=== PATIENT | male | born 1995 | race Caucasian/White ===

== ENCOUNTER 2024-01-08 06:43 | Emergency (ER) | payer BC, SELFPAY ==
[2024-01-08 07:02] VITALS: BP 122/76
[2024-01-08 07:48] LABS: % Basophils 1.1 % (0-2); % Eosinophils 1.8 % (0-6); % Immature Granulocytes 0.3 % (0-0.5); % Lymphocytes 30.1 % (20.5-51.1); % Monocytes 7.7 % (1.7-9.3); Absolute Basophils 0.1 10^3/uL (0-0.2); Absolute Eosinophils 0.2 10^3/uL (0-0.7); Absolute Lymphocytes 2.9 10^3/uL (1.2-3.4); Absolute Monocytes 0.7 10^3/uL (0.1-0.6); Absolute Neutrophils 5.6 10^3/uL (1.4-6.5); Hematocrit 45.1 % (39.0-52.0); Hemoglobin 16.5 g/dL (13.0-18.0); Mean Corp Hgb Conc. 36.6 g/dL (33.0-37.0); Mean Corpuscular Hgb 30.6 pg (27.0-31.0); Mean Corpuscular Volume 83.5 fL (80.0-94.0); Nucleated Red Blood Cells % 0 % (-); Platelet Count 242 10^3/uL (130-400); Red Cell Dist. Width 12.8 % (11.5-14.5); White Blood Cell Count 9.5 10^3/uL (4.8-10.8)
[2024-01-08 08:00] VITALS: BP 106/71
[2024-01-08 08:04] LABS: ALT (SGPT) 27 U/L (0-50); AST (SGOT) 24 U/L (17-59); Albumin 4.7 g/dl (3.5-5.0); Alkaline Phosphatase 64 U/L (38-126); Blood Urea Nitrogen 18 mg/dl (9-20); Carbon Dioxide 30 mmol/L (22-30); Chloride 101 mmol/L (98-107); Glucose 85 mg/dl (70-99); Potassium 3.9 mmol/L (3.5-5.1); Sodium 140 mmol/L (135-145); Total Bilirubin 0.6 mg/dl (0.2-1.3); Total Protein 6.9 g/dl (6.3-8.2); eGFR > 60.00
--- NOTE | 2024-01-08 08:16 | ED.GENMED ---
History of Present Illness
General
Chief Complaint: Urinary Symptoms
Time Seen by Provider: 01/08/24 08:07
History of Present Illness
History of Present Illness:
Patient is a 28-year-old man with history of ADHD and anxiety presenting to the emergency department with hematuria. Patient states that last night he had a little bit of blood in his urine. This morning went to the bathroom and had gross blood
that was red. No clots. He has been having constant suprapubic pain. It does not radiate. Has been having some dysuria and nausea. No fevers or chills. No back pain. No blood per stool. He is not on a blood thinner. This is never happened
to him before. He does not smoke. No history of cancer personally or family. No history of kidney stone. He is not sexually active. No testicular swelling. No penile discharge.
Past History
Past History
ED Past Medical History: Psychiatric (Generalized anxiety disorder)
ED Past Surgical History: None
Social History
Tobacco: Non-smoker
Personal: Single
Phy Exam
Physical Exam
Physical Exam:
GENERAL: Slightly uncomfortable appearing
HEENT: normocephalic, extraocular movements intact, moist oral mucosa
NECK: normal inspection
RESPIRATORY: no respiratory distress, clear to auscultation bilaterally
CARDIOVASCULAR: regular rate and rhythm
ABDOMEN/: soft, non-distended, suprapubic tenderness to palpation, no rebound or guarding
EXTREMITIES: non-tender, no edema/swelling
NEUROLOGIC: awake and alert, moves all extremities
SKIN: warm
Course
Orders/Labs/Results
Orders:
Orders
01/08/24 07:14
Complete Blood Count/With Diff Urgent
Comprehensive Metabolic Panel Urgent
01/08/24 08:15
CT Abd/pelvis W Iv Cont Urgent
Comment:
Reason For Exam: gross hematuria, pelvic pain
Acetaminophen [Tylenol] 1,000 mg PO NOW STA
01/08/24 10:31
Urinalysis Reflex To Culture Urgent
Date Specimen was Collected: 01/08/24
Time Specimen was Collected: 07:05
Urine Microscopic Reflex Cult Urgent
Abnormal Lab Results
01/08/24 01/08/24
07:14 10:31
Absolute Monos (auto) 0.7 H 10^3/uL
(0.1-0.6)
Ur Occult Blood Reflex 4+ A
(Negative)
Urine Bilirubin 1+ A
(Negative)
Leukocyte Esterase Rfl Trace A
(Negative)
Urine RBC 60-70 A /HPF
(0-2)
Urine Bacteria (Reflex) Few A
(Negative)
Urine Albumin (Reflex) 3+ A
(Neg - Trace)
01/08/24 07:14
01/08/24 07:14
Vital Signs
Initial and Last Documented VS:
Initial Vital Signs
Temp Pulse Resp BP Pulse Ox
98.2 F 64 18 122/76 99
01/08/24 07:02 01/08/24 07:02 01/08/24 07:02 01/08/24 07:02 01/08/24 07:02
Last Documented Vital Signs
Temp Pulse Resp BP Pulse Ox
98.0 F 64 16 118/78 99
01/08/24 08:00 01/08/24 10:42 01/08/24 10:42 01/08/24 10:42 01/08/24 10:42
MDM/Problems Addressed
Differential Diagnosis Includes:
28-year-old man presenting to the emergency department with 1 day of pelvic pain and gross hematuria. Vitals unremarkable and exam does show man who is slightly uncomfortable appearing with suprapubic abdominal tenderness. Differential is broad
but consists of UTI versus kidney stone versus bladder mass. Less likely to be prostate etiology as he has never had issues before. History and exam not consistent with glomerular disease. Blood work obtained prior to evaluation shows a normal
white count and normal creatinine. Will obtain CT scan. Urine pending at this time. Will BladderScan as patient states he is having difficulty.
*Critical Care Note
Total Time (30-74mins, 75-104mins- exclusive of procedures): Not Applicable
Update Note
Update Note:
Bladder scan 150. Patient was able to urinate. Urine with some blood. No overt signs of infection though he does have squamous cells. CT scan does show bladder stone and liver lesion which patient was updated with. He will follow-up with
urology. We did discuss indications for Banda catheter placement. He did urinate and bladder scan after that was 130. Given that he still has the urge and is able to urinate after shared decision making we will hold off on Banda catheter. I did
give patient strict return precautions. Will DC at this time
ED Attending Note
-
Portions of this chart may have been created with voice recognition software.� Occasional wrong word or��sound alike� substitutions may have occurred due to the inherent limitations of voice recognition software.
Discharge Plan
Departure
Patient Disposition: Home (Routine Discharge)
Date of Disposition: 01/08/24
Time of Disposition: 11:38
Patient with high blood pressure during this ER visit?: No
Discharge Problem:
Bladder calculi
Prescriptions:
No Action
.Anxiety Medication
1 tab PO PRN PRN (Reason: anxiety)
dicyclomine 10 MG capsule
10 mg PO QIDPRN PRN (Reason: abdominal pain) Qty: 15 0RF
ondansetron 4 MG tablet,disintegrating
4 mg PO TIDPRN PRN (Reason: NAUSEA) Qty: 10 0RF
Referrals:
Elias Putnam I., [Family Provider] -
Kendall Neal MD [Active] -
Activity Restrictions/Additional Instructions:
You were seen in the Emergency Department today for pelvic pain. While you were here we performed blood work, which was reassuring. Your urine did show blood but no overt signs of infection. Please follow-up with urology. Please come back to the
emergency department if you notice you have not urinated in 6 to 8 hours, have worsening pelvic discomfort or new fevers chills or urinary tract symptoms.
We would like for you to follow up with your primary care physician for further evaluation. If you experience fever, worsening of your symptoms, or develop any other new or concerning symptoms, please return to the Emergency Department immediately.
Please see the attached sheet for additional information.
When a patient comes into the Emergency Department, many diagnostic studies such as x-rays & CT Scans are completed to identify injuries. During these diagnostic studies, there are sometimes things like cysts, nodules, tumors, etc. that are
'incidentally found' and seen on these studies. No further workup was required during your hospitalization for your incidental findings, but please follow-up with your Primary Care Physician/Specialist regarding the below incidental findings. Your
Primary Care Physician/Specialist will instruct you/guide you through any further workup.
Your incidental findings:
LIVER: Low-density lesion measuring up to 4.3 cm in the inferior right hepatic lobe which appears to have some peripheral, nodular enhancement and likely represents a hemangioma.
Interventions
Interventions:
*Risk Screen - Suicide Last Done: 01/08/24 09:07
*General Assessment Last Done: 01/08/24 09:07
*Neglect/Abuse Screening Last Done: 01/08/24 09:07
ED- Fall Risk Assessment Last Done: 01/08/24 08:13
*ED COVID-19 Vaccine History Last Done: 01/08/24 09:07
ED-Male Genitourinary Assessment Last Done: 01/08/24 08:13
Discharge Date and Time
Print Language: ERITREAN
[2024-01-08] MEDS: TYLENOL 1000 MG PO (09:04)
[2024-01-08 09:12] VITALS: BP 108/70
[2024-01-08 10:42] VITALS: BP 118/78
[2024-01-08 10:45] LABS: Urine Albumin 3+ (Neg - Trace); Urine Bilirubin 1+ (Negative); Urine Character Very Cloudy (Clear); Urine Color Red; Urine Glucose Negative (Negative); Urine Ketone Negative (Negative); Urine Leukocyte Trace (Negative); Urine Nitrite Negative (Negative); Urine Occult Blood 4+ (Negative); Urine Urobilinogen 1+ (Neg - 1+)
[2024-01-08 10:58] LABS: Urine Squamous Cell 0-2 /LPF (Few)
[2024-01-08 10:59] LABS: Urine Bacteria Few (Negative); Urine Calcium Oxalate Crystals Present; Urine Red Blood Cell 60-70 /HPF (0-2)
--- NOTE | 2024-01-08 11:18 | EDRN ---
Taken by RP nurse.
== END 2024-01-08 11:51 | disposition home or self-care (01) ==
LOC: EMR 06:43
PROVIDERS: Student in an Organized Health Care Education/Training Program; EMERGENCY PHYSICIAN Student in an Organized Health Care Education/Training Program; FAMILY PHYSICIAN Internal Medicine
DX: N21.0 Calculus in bladder (principal); K76.9 Liver disease, unspecified
CPT/HCPCS: 99284; 74177; 80053; 81003; 81015; 85025; Q9967

== ENCOUNTER 2024-01-30 15:40 | Emergency (ER) | payer BC, SELFPAY ==
[2024-01-30 15:41] VITALS: BP 136/96
--- NOTE | 2024-01-30 16:59 | ED.GENMED ---
History of Present Illness
General
Chief Complaint: Male Genito-Urinary Symptoms
Source: patient
Time Seen by Provider: 01/30/24 16:47
History of Present Illness
History of Present Illness:
28yoM with a history of ADHD and anxiety presenting with his mother for evaluation of testicular pain x 1 week. Patient reports testicular pain that varies in location over the past week. Sometimes he has left sided pain but he currently is having
right sided pain. The pain feels like it is in the epididymis. He has a history of epididymitis several years ago and he is worried that he has this again. He has been taking naproxen with some improvement. He also reports dysuria. No fevers,
chills, vomiting, abdominal pain, flank pain. He denies any concern for STDs. He was seen in the ED on 01/08/24 for hematuria and abdominal pain. He was diagnosed with a bladder stone. Patient believes he passed the stone as his hematuria and
abdominal pain have resolved.
Past History
Past History
ED Past Medical History: Psychiatric (Generalized anxiety disorder)
ED Past Surgical History: None
Social History
Tobacco: Non-smoker
Personal: Single
Phy Exam
General Physical Exam
General Presentation: well appearing and no apparent distress
General age: appears stated age
General Skin: warm and dry
General Habitus: normal
General Mental: alert
ENT Exam
ENT Exam: normocephalic
Pulmonary Exam
Pulmonary Exam: no respiratory distress
Gastrointestinal Exam
Gastrointestinal Exam: non tender, soft and non distended
Genitourinary Exam Male
Exam Male: circumcised, no testicular swelling and other (+Tenderness to R epididymis. No scrotal edema or erythema. No palpable hernia. )
Moy Coma Scale
Eye Opening: Spontaneous
Verbal Response: Oriented
Motor Response: Obeys Commands
GCS Total Score: 15
Skin Exam
Skin Exam: normal color and warm/dry
Psychiatric Exam
Psychiatric Exam: normal mood/affect
Course
Orders/Labs/Results
Orders:
Orders
01/30/24 17:06
Scrotum US [US Scrotum] Urgent
Comment:
Reason For Exam: R testicular pain
01/30/24 17:10
Urinalysis Reflex To Culture Urgent
Date Specimen was Collected: 01/30/24
Time Specimen was Collected: 17:09
Chlamydia/GC by PCR Urgent
MELONY Source: U
Specimen Description:
Source:: URINE
Date Specimen was Collected: 01/30/24
Time Specimen was Collected: 17:09
Comment: Add on by Edyta Jameson
01/30/24 18:25
Add On - Microbiology Urgent
Tests Added?: GC/chlamydia
01/30/24 19:45
Ceftriaxone Sodium [Rocephin] 500 mg IM NOW STA
Doxycycline [Vibramycin] 100 mg PO NOW STA
Vital Signs
Initial and Last Documented VS:
Initial Vital Signs
Temp Pulse Resp BP Pulse Ox
97.8 F 94 16 136/96 100
01/30/24 15:41 01/30/24 15:41 01/30/24 15:41 01/30/24 15:41 01/30/24 15:41
Last Documented Vital Signs
Temp Pulse Resp BP Pulse Ox
97.8 F 94 16 136/96 98
01/30/24 15:41 01/30/24 15:41 01/30/24 15:41 01/30/24 15:41 01/30/24 18:14
MDM/Problems Addressed
Differential Diagnosis Includes:
28yoM here with testicular pain x 1 week. Feels similar to prior episode of epididymitis. Also having dysuria. No fevers, flank pain, vomiting. He is afebrile and hemodynamically stable. He is well appearing in no distress. There is R epididymal
tenderness on exam without scrotal swelling. Differential diagnosis includes but is not limited to: epididymitis, orchitis, UTI, doubt testicular torsion
Initial ED plan: Check UA, GC/chlamydia testing, and scrotal ultrasound.
*Critical Care Note
Total Time (30-74mins, 75-104mins- exclusive of procedures): Not Applicable
Update Note
Update Note:
UA bland without signs of infection. US shows evidence of mild epididymitis. Imaging otherwise unremarkable. IM Rocephin given and he was started on doxycycline x 10 days. Supportive care discussed including scrotal elevation, ice, and NSAIDs.
Advised f/u with PCP and urology. ED return precautions discussed. He was discharged in stable condition.
ED Attending Note
-
Portions of this chart may have been created with voice recognition software.� Occasional wrong word or��sound alike� substitutions may have occurred due to the inherent limitations of voice recognition software.
Discharge Plan
Departure
Patient Disposition: Home (Routine Discharge)
Date of Disposition: 01/30/24
Time of Disposition: 19:46
Patient with high blood pressure during this ER visit?: No
Discharge Problem:
Epididymitis, right
Instructions: Epididymitis and Orchitis
Prescriptions:
New
doxycycline hyclate 100 mg capsule
100 mg PO BID Qty: 19 0RF
No Action
.Anxiety Medication
1 tab PO PRN PRN (Reason: anxiety)
dicyclomine 10 MG capsule
10 mg PO QIDPRN PRN (Reason: abdominal pain) Qty: 15 0RF
ondansetron 4 MG tablet,disintegrating
4 mg PO TIDPRN PRN (Reason: NAUSEA) Qty: 10 0RF
Referrals:
Elias Putnam DO [Family Provider] -
Fritz Austin MD [Active] -
Activity Restrictions/Additional Instructions:
Take antibiotics as prescribed.
Elevate your scrotum, apply ice, and take ibuprofen/Tylenol as needed for pain.
Please follow-up with your family doctor and urology.
Return to the ER with any worsening symptoms or fevers.
Interventions
Interventions:
*Risk Screen - Suicide Last Done: 01/30/24 15:41
*General Assessment Last Done: 01/30/24 18:14
*Neglect/Abuse Screening Last Done: 01/30/24 18:14
ED- Fall Risk Assessment Last Done: 01/30/24 18:14
*ED COVID-19 Vaccine History Last Done: 01/30/24 18:14
*Nursing Disposition Last Done: 01/30/24 20:10
ED-Male Genitourinary Assessment Last Done: 01/30/24 18:14
Discharge Date and Time
Discharge Date/Time: 01/30/24 20:13
Print Language: FRENCH
[2024-01-30 17:26] LABS: Urine Albumin Negative (Neg - Trace); Urine Bilirubin Negative (Negative); Urine Character Clear (Clear); Urine Color Yellow; Urine Glucose Negative (Negative); Urine Ketone Negative (Negative); Urine Leukocyte Negative (Negative); Urine Nitrite Negative (Negative); Urine Occult Blood Negative (Negative); Urine Urobilinogen Negative (Neg - 1+)
[2024-01-30 18:11] VITALS: BMI 19.3
[2024-01-30] MEDS: VIBRAMYCIN 100 MG PO (20:02)
[2024-01-30] MEDS: ROCEPHIN 500 MG IM (20:03)
== END 2024-01-30 20:13 | disposition home or self-care (01) ==
LOC: EMR 15:40
PROVIDERS: Physician Assistant; EMERGENCY PHYSICIAN Emergency Medicine; FAMILY PHYSICIAN Internal Medicine
DX: N45.1 Epididymitis (principal)
CPT/HCPCS: 99284; 96372; 76870; 81003; 87491; 87591; 93976